=== PATIENT | male | born 1970 | race Caucasian/White ===

== ENCOUNTER 2019-01-27 13:55 | Emergency (ER) | payer BC, OTHER ==
[~2019-01-27] VITALS: Ht 182.9 cm; Wt 104.3 kg
[2019-01-27 14:20] VITALS: BP 149/101
[2019-01-27] MEDS ORDERED: KETOROLAC TROMETH 60MG/2ML VIAL IM ONE (15:15)
== END 2019-01-27 16:03 | disposition home or self-care (01) ==
LOC: ER 13:55
DX: S76.011A Strain of muscle, fascia and tendon of right hip, initial encounter (principal); S20.211A Contusion of right front wall of thorax, initial encounter; W01.0XXA Fall on same level from slipping, tripping and stumbling without subsequent striking against object, initial encounter; Y93.89 Activity, other specified; Y99.8 Other external cause status; Y92.89 Other specified places as the place of occurrence of the external cause
CPT/HCPCS: 71101; 73502; 96372; 99283; J1885